=== PATIENT | female | born 1985 | race Caucasian/White ===

== ENCOUNTER → 2017-11-30 | Outpatient (CLI) | payer OTHER ==
--- NOTE | 2017-11-30 11:47 | Diagnostic Imaging Report ---
INDICATION: Back pain COMPARISON: None FINDINGS: 3 views of the lumbar spine are obtained. No acute fracture, malalignment or osseous destructive process is seen. Body heights and disc spaces appear maintained. The pedicles appear intact. The sacroiliac joints appear unremarkable. IMPRESSION: No acute abnormality is demonstrated. Dictated by: Dictated on workstation # [id number]
== END ==
LOC: RAD 11:12
PROVIDERS: ATTEND Chiropractor
DX: M54.17 Radiculopathy, lumbosacral region (principal)
CPT/HCPCS: 72100